=== PATIENT | female | born 1980 | race Caucasian/White ===

== ENCOUNTER 2024-12-27 04:08 | Observation (INO) ==
[2024-12-27] MEDS: SODIUM CHLORIDE 0.9% 1,000 ML IV ONE (04:21)
[2024-12-27] MEDS: ONDANSETRON INJ 2 MG/ML 2 ML VIAL IV STA (04:21)
[2024-12-27] MEDS: MoRPHine SULFATE 4 MG/ML 1 ML CARP\\VIAL IV STA (04:21)
--- NOTE | 2024-12-27 04:21 | Emergency Department Note ---
History of Present Illness General Chief complaint: Abdominal Pain Stated complaint: FRONT ABD PAIN AFTER GALLBLADDER SURG YESTERDAY Time Seen by Provider: 12/27/24 04:14 History of Present Illness Maximum Pain Intensity: 10 This 44-year-old female presents ER complaining of severe right upper quadrant pain got her gallbladder removed [address] Galeana. Patient took 2 of her Oxy's and this did not help pain got worse and patient came in. Patient denies chest pain, dyspnea, fever, chills. Home Medications Medication Instructions Recorded Confirmed Type estradiol 2 mg tablet 2 mg PO QAM 12/09/24 12/27/24 History oxycodone 5 mg tablet 5 - 10 mg (1 - 2 x 5 mg) PO 12/25/24 12/27/24 Rx .[id number] PRN pain, for initial therapy, max 6 tabs per day #15 tabs Allergies Allergy/AdvReac Type Severity Reaction Status Date / Time No Known Allergies Allergy Verified 12/25/24 13:00 Past Med/Surg History Problem List (Updated 12/27/24 @ 16:24 by Corinna Fagan PA-C) Postoperative generalized abdominal pain Intractable abdominal pain (Acute) S/P laparoscopic cholecystectomy (Acute) Encounter for pre-operative examination Medical History (Updated 12/27/24 @ 16:24 by Corinna Fagan PA-C) Cigarette smoker Small bowel obstruction hx of Surgical History (Updated 12/27/24 @ 06:01 by Xenia Woodward PA-C) Hx laparoscopic cholecystectomy (12/25/24) Laparoscopic Cholecystectomy - Jose Galeana, DO H/O tubal ligation (01/2011) 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) S/P laparoscopy with lysis of adhesions 2014, 2015, 2018 S/P complete hysterectomy (08/06/18) Family History Grandmother Diabetes Other No family history of adverse response to anesthesia Social History Smoking Status: Current every day smoker Tobacco Type: Cigarettes Age Started Using Tobacco: 19; Cigarettes Per Day: 5-6; Second Hand Exposure: No; Do You Dip or Chew Tobacco: No; Hx Alcohol Use: Yes Alcohol type: beer Alcohol Intake Frequency: Monthly or Less Hx Substance Use: No Preferred Language: Macedonian Communication Ability: Effective 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 Required: No Beliefs That Will Affect Care: None marital status: Current Living Situation: Family current occupational status: unemployed 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 How many Children do You have: 3 Feels Safe at Home: Yes Safety Concerns: Feels Safe At This Time Assistive Devices: Glasses Review of Systems A total of 10 systems reviewed and were otherwise negative Physical Exam Vital Signs Vital Signs - 24 hr 12/27/24 04:11 12/27/24 04:28 12/27/24 06:26 Temperature 36.6 C Temperature Source Temporal Artery Scan Pulse Rate 87 78 Pulse Rate [Right Finger] 99 H Pulse Rate from SpO2 Sensor Pulse Rhythm [Right Finger] Pulse Strength [Right Finger] Respiratory Rate 20 12 Respiratory Effort / Characteristics Respiratory Depth Normal Blood Pressure 152/82 H Blood Pressure [Left Arm] 112/62 Blood Pressure Mean 105 Blood Pressure Mean [Left Arm] 78 Pulse Oximetry 95 94 Oxygen Delivery Method Room Air Room Air Oxygen Flow Rate Sepsis Recent Fever Within 48 Hours No Sepsis New/Unexplained Change in Mental Status No Sepsis Action Taken by Nursing No Action Required Oxygen Flow Rate - Titration Pulse Oximetry Post Tiitration 12/27/24 06:26 12/27/24 07:20 12/27/24 08:00 Temperature Temperature Source Pulse Rate Pulse Rate [Right Finger] 63 Pulse Rate from SpO2 Sensor Pulse Rhythm [Right Finger] Regular Pulse Strength [Right Finger] Normal Respiratory Rate 20 Respiratory Effort / Characteristics Non-Labored Spontaneous Respiratory Depth Normal Blood Pressure Blood Pressure [Left Arm] 125/80 Blood Pressure Mean Blood Pressure Mean [Left Arm] 95 Pulse Oximetry 92 88 L 98 Oxygen Delivery Method Room Air Room Air Nasal Cannula Nasal Cannula Oxygen Flow Rate 0 2 Sepsis Recent Fever Within 48 Hours Sepsis New/Unexplained Change in Mental Status Sepsis Action Taken by Nursing Oxygen Flow Rate - Titration 2 Pulse Oximetry Post Tiitration 96 12/27/24 08:00 12/27/24 08:01 12/27/24 08:12 Temperature Temperature Source Pulse Rate 73 63 Pulse Rate [Right Finger] Pulse Rate from SpO2 Sensor 72 62 Pulse Rhythm [Right Finger] Pulse Strength [Right Finger] Respiratory Rate 22 22 Respiratory Effort / Characteristics Respiratory Depth Blood Pressure 125/80 Blood Pressure [Left Arm] Blood Pressure Mean 87 Blood Pressure Mean [Left Arm] Pulse Oximetry 98 98 Oxygen Delivery Method Oxygen Flow Rate Sepsis Recent Fever Within 48 Hours Sepsis New/Unexplained Change in Mental Status Sepsis Action Taken by Nursing Oxygen Flow Rate - Titration Pulse Oximetry Post Tiitration 12/27/24 08:22 12/27/24 08:22 12/27/24 08:24 Temperature Temperature Source Pulse Rate 70 Pulse Rate [Right Finger] Pulse Rate from SpO2 Sensor 68 Pulse Rhythm [Right Finger] Pulse Strength [Right Finger] Respiratory Rate 29 H Respiratory Effort / Characteristics Respiratory Depth Blood Pressure 113/79 113/79 Blood Pressure [Left Arm] Blood Pressure Mean 91 91 Blood Pressure Mean [Left Arm] Pulse Oximetry 97 Oxygen Delivery Method Oxygen Flow Rate Sepsis Recent Fever Within 48 Hours Sepsis New/Unexplained Change in Mental Status Sepsis Action Taken by Nursing Oxygen Flow Rate - Titration Pulse Oximetry Post Tiitration 12/27/24 08:46 12/27/24 09:00 12/27/24 09:00 Temperature Temperature Source Pulse Rate 51 L 64 Pulse Rate [Right Finger] Pulse Rate from SpO2 Sensor 56 L Pulse Rhythm [Right Finger] Pulse Strength [Right Finger] Respiratory Rate 25 H Respiratory Effort / Characteristics Respiratory Depth Blood Pressure 110/71 Blood Pressure [Left Arm] Blood Pressure Mean 78 Blood Pressure Mean [Left Arm] Pulse Oximetry 99 Oxygen Delivery Method Oxygen Flow Rate Sepsis Recent Fever Within 48 Hours Sepsis New/Unexplained Change in Mental Status Sepsis Action Taken by Nursing Oxygen Flow Rate - Titration Pulse Oximetry Post Tiitration 12/27/24 10:00 12/27/24 10:00 12/27/24 10:00 Temperature Temperature Source Pulse Rate 67 Pulse Rate [Right Finger] Pulse Rate from SpO2 Sensor 66 Pulse Rhythm [Right Finger] Pulse Strength [Right Finger] Respiratory Rate 10 L Respiratory Effort / Characteristics Respiratory Depth Blood Pressure 96/67 L 96/67 L Blood Pressure [Left Arm] Blood Pressure Mean 73 73 Blood Pressure Mean [Left Arm] Pulse Oximetry 98 Oxygen Delivery Method Oxygen Flow Rate Sepsis Recent Fever Within 48 Hours Sepsis New/Unexplained Change in Mental Status Sepsis Action Taken by Nursing Oxygen Flow Rate - Titration Pulse Oximetry Post Tiitration 12/27/24 11:00 12/27/24 11:00 12/27/24 12:00 Temperature Temperature Source Pulse Rate 72 82 Pulse Rate [Right Finger] Pulse Rate from SpO2 Sensor 65 82 Pulse Rhythm [Right Finger] Pulse Strength [Right Finger] Respiratory Rate 32 H 24 Respiratory Effort / Characteristics Respiratory Depth Blood Pressure 103/62 Blood Pressure [Left Arm] Blood Pressure Mean 71 Blood Pressure Mean [Left Arm] Pulse Oximetry 95 99 Oxygen Delivery Method Oxygen Flow Rate Sepsis Recent Fever Within 48 Hours Sepsis New/Unexplained Change in Mental Status Sepsis Action Taken by Nursing Oxygen Flow Rate - Titration Pulse Oximetry Post Tiitration 12/27/24 12:01 12/27/24 12:03 12/27/24 12:52 Temperature Temperature Source Pulse Rate 90 80 Pulse Rate [Right Finger] Pulse Rate from SpO2 Sensor 85 Pulse Rhythm [Right Finger] Pulse Strength [Right Finger] Respiratory Rate 15 Respiratory Effort / Characteristics Respiratory Depth Blood Pressure 128/74 Blood Pressure [Left Arm] Blood Pressure Mean 76 Blood Pressure Mean [Left Arm] Pulse Oximetry 99 Oxygen Delivery Method Oxygen Flow Rate Sepsis Recent Fever Within 48 Hours Sepsis New/Unexplained Change in Mental Status Sepsis Action Taken by Nursing Oxygen Flow Rate - Titration Pulse Oximetry Post Tiitration 12/27/24 13:00 12/27/24 13:00 12/27/24 14:00 Temperature Temperature Source Pulse Rate 83 77 Pulse Rate [Right Finger] Pulse Rate from SpO2 Sensor 78 76 Pulse Rhythm [Right Finger] Pulse Strength [Right Finger] Respiratory Rate 18 21 Respiratory Effort / Characteristics Respiratory Depth Blood Pressure 138/84 Blood Pressure [Left Arm] Blood Pressure Mean 107 Blood Pressure Mean [Left Arm] Pulse Oximetry 96 98 Oxygen Delivery Method Oxygen Flow Rate Sepsis Recent Fever Within 48 Hours Sepsis New/Unexplained Change in Mental Status Sepsis Action Taken by Nursing Oxygen Flow Rate - Titration Pulse Oximetry Post Tiitration 12/27/24 14:00 Temperature Temperature Source Pulse Rate Pulse Rate [Right Finger] Pulse Rate from SpO2 Sensor Pulse Rhythm [Right Finger] Pulse Strength [Right Finger] Respiratory Rate Respiratory Effort / Characteristics Respiratory Depth Blood Pressure 147/102 H Blood Pressure [Left Arm] Blood Pressure Mean 127 Blood Pressure Mean [Left Arm] Pulse Oximetry Oxygen Delivery Method Oxygen Flow Rate Sepsis Recent Fever Within 48 Hours Sepsis New/Unexplained Change in Mental Status Sepsis Action Taken by Nursing Oxygen Flow Rate - Titration Pulse Oximetry Post Tiitration VITALS: Vitals are noted on the nurse's note and reviewed by myself. Vital signs stable. GENERAL: Pleasant female who appears in pain, in no acute distress, nondiaphoretic, well-developed well-nourished. SKIN: Capillary reflex less than 2 seconds. HEENT: Normocephalic. PERRLA. EOMI. Nares patent. Mucous membranes moist. Neck is supple without nuchal rigidity. HEART: Regular rate and rhythm LUNGS: Clear to auscultation bilaterally without wheezes, rales or rhonchi. No retractions or accessory muscle use. ABDOMEN: Positive bowel sounds x 4. Normal tympanic percussion. Soft, incision intact without signs of infection, tender to palpation upper abdomen, without masses or organomegaly. No guarding or rebound tenderness. no CVA tenderness MUSCULOSKELETAL: No gross musculoskeletal defects. NEURO: Patient was alert and oriented to person place and time. No focal neurological deficits. Course Administered Medications Hydromorphone HCl (Hydromorphone Inj 0.5 Mg/0.5 Ml Syr) 0.5 mg IV Q15M PRN PRN Reason: Pain Stop: 01/10/25 04:40 Last Admin: 12/27/24 08:06 Dose: 0.5 mg Documented By: Admin: 12/27/24 06:13 Dose: 0.5 mg Documented By: fernanda Admin: 12/27/24 05:16 Dose: 0.5 mg Documented By: fernanda Admin: 12/27/24 04:50 Dose: 0.5 mg Documented By: fernanda Sodium Chloride (Nss) 1,000 mls @ 80 mls/hr IV .[id number] ELIZABETH Stop: 12/30/24 05:59 Last Admin: 12/27/24 20:33 Dose: 80 mls/hr Documented By: pierce Infusion: 12/27/24 18:48 Dose: Infused Documented By: pierce Admin: 12/27/24 06:18 Dose: 80 mls/hr Documented By: fernanda Ibuprofen (Ibuprofen 600 Mg Tab) 600 mg PO Q6H PRN PRN Reason: Pain Stop: 01/26/25 15:54 Last Admin: 12/27/24 16:46 Dose: 600 mg Documented By: juanito Ketorolac Tromethamine (Ketorolac 30 Mg/Ml Vial) 30 mg IV Q6H PRN PRN Reason: Pain Stop: 01/01/25 15:54 Last Admin: 12/27/24 20:34 Dose: 30 mg Documented By: psc Discontinued Medications Sodium Chloride (Nss) 1,000 mls @ 999 mls/hr IV .Q1H1M ONE Stop: 12/27/24 05:14 Last Infusion: 12/27/24 06:10 Dose: Infused Documented By: fernanda Admin: 12/27/24 04:21 Dose: 999 mls/hr Documented By: fernanda Pantoprazole Sodium (Protonix) 40 mg in 10 mls @ 5 mls/min IV NOW ONE Stop: 12/27/24 04:42 Last Admin: 12/27/24 04:50 Dose: 5 mls/min Documented By: fernanda Ioversol (Optiray 320 100ml) 93 ml IV ONCE ONE Stop: 12/27/24 04:38 Last Admin: 12/27/24 04:37 Dose: 93 ml Documented By: SHAHID Ketorolac Tromethamine (Ketorolac 30 Mg/Ml Vial) 30 mg IV NOW ONE Stop: 12/27/24 13:50 Last Admin: 12/27/24 14:05 Dose: 30 mg Documented By: JOSE ANTONIO Morphine Sulfate (Morphine Sulfate 4 Mg/Ml 1 Ml Carp\Vial) 4 mg IV NOW STA Stop: 12/27/24 04:15 Last Admin: 12/27/24 04:21 Dose: 4 mg Documented By: fernanda Ondansetron HCl (Ondansetron Inj 2 Mg/Ml 2 Ml Vial) 4 mg IV NOW STA Stop: 12/27/24 04:15 Last Admin: 12/27/24 04:21 Dose: 4 mg Documented By: fernanda Medical Decision Making Medical Records Attestation: I reviewed the patient's medical records. Home Medications Current Medication List: was personally reviewed by me Laboratory Data Attestation: I reviewed the patient's lab results. 12/27/24 04:13 12/27/24 04:13 Lab Results 12/27/24 12/27/24 12/27/24 Range/Units 04:13 04:22 04:27 WBC 11.21 H (4.8-10.8) K/ul RBC 4.29 (4.20-5.40) M/uL Hgb 13.1 (12.0-16.0) g/dl POC Hgb 12.9 (12.0-16.0) g/dl Hct 38.5 (37.0-47.0) % POC Hct 38 (37-47) % MCV 89.7 (80.0-100.0) fL MCH 30.5 (25.0-34.0) pg MCHC 34.0 (32.0-36.0) g/dL RDW Std Deviation 42.3 (36.4-46.3) fL RDW Coeff of Fernando 12.8 (11.5-14.5) % Plt Count 269 (130-400) K/uL MPV 9.7 (9.4-12.4) fL Immature Gran % (Auto) 0.4 % Neut % (Auto) 63.8 % Lymph % (Auto) 29.3 % Motley % (Auto) 6.2 % Eos % (Auto) 0.2 % Baso % (Auto) 0.1 % Neut # (Auto) 7.17 H (1.40-6.50) K/uL Lymph # (Auto) 3.28 (1.20-3.40) K/uL Motley # (Auto) 0.69 H (0.11-0.59) K/uL Eos # (Auto) 0.02 (0.00-0.50) K/uL Baso # (Auto) 0.01 (0.00-0.20) K/uL Immature Gran # (Auto) 0.04 (0.01-0.20) K/uL POC Sodium 140 (135-144) mmol/L Sodium 139 (136-145) mmol/L POC Potassium 4.1 (3.3-5.0) mmol/L Potassium 4.1 (3.5-5.1) mmol/L POC Chloride 106 (101-112) mmol/L Chloride 106 (98-107) mmol/L Carbon Dioxide 26 (21-32) mmol/L POC Total CO2 24 (24-31) mmol/L Anion Gap 7 (3-11) POC Anion Gap 16.0 (16-25) mmol/L POC BUN 11 (7-18) mg/dl BUN 12 (6-23) mg/dl Creatinine 0.87 (0.6-1.2) mg/dl POC Creatinine 0.9 (0.6-1.3) mg/dl Est Cr Clr Drug Dosing 68.2 ml/min eGFR 83.68 BUN/Creatinine Ratio 13.8 (10-20) Glucose 117 H (70-99(Fasting)) mg/dl POC Glucose (other) 112 H (70-99) mg/dl Calcium 9.3 (8.6-10.3) mg/dl POC Ioniz Calcium Sally 1.13 (1.12-1.32) mmol/l Total Bilirubin 0.3 (0.2-1.0) mg/dl AST 46 H (13-39) U/L ALT 50 (7-52) U/L Alkaline Phosphatase 47 (34-104) U/L Total Protein 7.0 (6.0-8.3) gm/dl Albumin 4.0 (3.4-5.0) gm/dl Globulin 3.0 (2.5-4.0) gm/dl Albumin/Globulin Ratio 1.3 (0.9-2) Lipase 14 (11-82) U/L HCG, Qual Negative (Negative) Urine Color Yellow Urine Appearance Clear (Clear) Urine pH 6.5 (4.5-7.5) Ur Specific [place] 1.015 (1.000-1.030) Urine Protein Negative (Negative) Urine Glucose (UA) Negative (Negative) Urine Ketones Negative (Negative) Urine Blood Negative (Negative) Urine Nitrite Negative (Negative) Urine Bilirubin Negative (Negative) Urine Urobilinogen Negative (Negative) Ur Leukocyte Esterase Negative (Negative) Urine Comment Imaging Data Attestation: I personally reviewed and interpreted this imaging study as follows: Radiologist's Impression: Abdomen/Pelvis CT 12/27/24 04:13 EXAM: CT abd pelvis IV con only CLINICAL HISTORY: Gallbladder was removed 2 days ago, with severe pain. TECHNIQUE: CT of the abdomen and pelvis was performed with IV contrast, using the following protocol: axial images were obtained and reconstructed into coronal and sagittal images. One of the following dose-reduction techniques was used for this exam: automated exposure control, adjustment of mA and/or kV according to patient size, and iterative reconstruction. COMPARISON: Prior CT 11/26/2024 and US 11/26/2024 FINDINGS: Abdomen: Status post cholecystectomy. The operative bed demonstrates minimal free fluid and minimal perihepatic free air density, consistent with postoperative changes. The common bile duct measures approximately 5 mm in diameter. Liver: Normal in size, contour, and attenuation. No focal hepatic lesions are identified. The hepatic vasculature and intrahepatic bile ducts are unremarkable. Pancreas: The head, body, and tail are normal in size and density. No pancreatic mass, calcification, or ductal dilatation is present. Spleen: Normal in size and attenuation. No focal splenic lesions. Appendix: Not well visualized; no inflammatory changes in the right iliac fossa. Kidneys and Adrenal Glands: Both kidneys are normal in size, shape, and cortical thickness. No calculi or hydronephrosis are present. The adrenal glands are unremarkable. Pelvis: The urinary bladder is normal in contour and wall thickness; no intraluminal lesions are seen. The uterus is surgically absent. Ovaries are not well visualized; no gross adnexal abnormalities are seen. The vagina and cervix appear normal. Peritoneal and Retroperitoneal Structures: Minimal pelvic free fluid is noted. No lymphadenopathy is present. Bowel: Visualized bowel loops are normal in caliber and wall thickness. No evidence of obstruction or inflammatory changes. Bones and Soft Tissues: The pelvic bones and soft tissues are unremarkable. No fractures or masses are identified. IMPRESSION: 1. Post-cholecystectomy changes with minimal operative bed free fluid and perihepatic free air, consistent with postoperative sequela. New finding. 2. Minimal pelvic free fluid. New finding. 3. No evidence of intra-abdominal collection, abscess, or other significant interval change. Electronically signed by Ariel Nash 12-27-2024 05:50 AM [facility] Narrative Prior records/ancillary studies reviewed. Triage Nursing notes reviewed. Additional history obtained from family. The patient's history was concerning for abdominal pain. Differential diagnosis: Etiologies such as postsurgical complication, postsurgical pain, appendicitis, diverticulitis, PUD, biliary pathology, UTI, pancreatitis, obstruction, mesenteric ischemia, aortic pathology, infections, inflammatory bowel disease, renal colic, as well as others were entertained. Physical examination findings: As above. ER treatment provided: An order was placed for continuous cardiac monitoring. The monitor shows a rate of 60-100 with a sinus rhythm per my Independent interpretation. IV fluids Zofran and morphine ordered On reassessment the patient felt better. Diagnostics interpreted by me: The labs Independently Interpreted by myself revealed mild leukocytosis, stable H&H, glucose 117. Imaging studies: Imaging was reviewed and read by radiology Consultation: A consultation was placed with the surgeon, Dr. Botello, the case was discussed and diagnostics were reviewed. The patient was admitted to her service. Exam and history seem consistent with intractable abdominal pain who had her gallbladder removed [address] with no findings of surgical complication. Stable labs. Patient was still in a moderate amount of pain despite multiple rounds of pain meds. Surgery was consulted and will evaluate the patient for admission. She was placed on maintenance fluids. She was ordered as needed pain meds as needed. Patient and family agreeable treatment plan. By the evaluation outlined above emergent etiologies such as appendicitis, diverticulitis, PUD, biliary pathology, UTI, pancreatitis, obstruction, mesenteric ischemia, aortic pathology, infections, inflammatory bowel disease, renal colic, as well as others were deemed relatively unlikely. The pt informed about the findings as listed above. All questions were answered and pleased with the treatment. The chart was completed utilizing [employer] Speech voice recognition software. Grammatical errors, random word insertions, pronoun errors, and incomplete sentences are an occassional consequence of this system due to software limitations, ambient noise, and hardware issues. Any formal questions or concerns about the content, text, or information contained within the body of this dictation should be directly addressed to the physician evaluation assistant for clarification. Impression & Plan Intractable abdominal pain, S/P laparoscopic cholecystectomy Discharge Plan Visit Data Chief Complaint: Abdominal Pain Stated Complaint: FRONT ABD PAIN AFTER GALLBLADDER SURG YESTERDAY ED Provider: Esperanza Marin ED Midlevel Provider: Xenia Woodward Discharge Problem: Intractable abdominal pain, S/P laparoscopic cholecystectomy Patient Disposition: Admitted As Inpatient Condition: Good Discharge Instructions Interventions: ED Discharge Assessment Last Done: 12/27/24 16:40
[2024-12-27 04:33] LABS: Appearance Urine Clear (Clear); Glucose Urine UA Negative (Negative)
[2024-12-27 04:36] LABS: Hematocrit (blood only) 38.5 % (37.0-47.0); Hemoglobin 13.1 g/dl (12.0-16.0); Immature Granulocytes # (auto) 0.04 K/uL (0.01-0.20); Immature Granulocytes % (auto) 0.4 %; Mean Corpuscular Hemoglobin 30.5 pg (25.0-34.0); Mean Corpuscular Volume 89.7 fL (80.0-100.0); Platelet Count 269 K/uL (130-400); RDW Standard Deviation 42.3 fL (36.4-46.3); Red Blood Count 4.29 M/uL (4.20-5.40); White Blood Count 11.21 K/ul (4.8-10.8)
[2024-12-27] MEDS: OPTIRAY 320 100ml IV ONE (04:37)
[2024-12-27] MEDS: HYDROmorphone INJ 0.5 MG/0.5 ML SYR IV PRN (04:50)
[2024-12-27] MEDS: PANTOprazole 40 MG/10 ML SYR IV ONE (04:50)
[2024-12-27 04:55] LABS: Alanine Aminotransferase 50.0 U/L (7-52); Albumin Globulin Ratio 1.3 (0.9-2); Albumin Level 4.0 gm/dl (3.4-5.0); Alkaline Phosphatase 47.0 U/L (34-104); Anion Gap 7.0 (3-11); Bilirubin,Total 0.3 mg/dl (0.2-1.0); Blood Urea Nitrogen 12.0 mg/dl (6-23); Calcium 9.3 mg/dl (8.6-10.3); Carbon Dioxide 26.0 mmol/L (21-32); Chloride 106.0 mmol/L (98-107); Creatinine Clr Calc Pharmacy 68.2 ml/min; Globulin 3.0 gm/dl (2.5-4.0); Glucose 117.0 mg/dl (70-99(Fasting)); Lipase 14.0 U/L (11-82); Potassium 4.1 mmol/L (3.5-5.1); Sodium 139.0 mmol/L (136-145); Total Protein 7.0 gm/dl (6.0-8.3)
[2024-12-27 05:20] LABS: Pregnancy Test, Serum Negative (Negative)
--- NOTE | 2024-12-27 05:50 | CT Scan Report ---
EXAM: CT abd pelvis IV con only CLINICAL HISTORY: Gallbladder was removed 2 days ago, with severe pain. TECHNIQUE: CT of the abdomen and pelvis was performed with IV contrast, using the following protocol: axial images were obtained and reconstructed into coronal and sagittal images. One of the following dose-reduction techniques was used for this exam: automated exposure control, adjustment of mA and/or kV according to patient size, and iterative reconstruction. COMPARISON: Prior CT 11/26/2024 and US 11/26/2024 FINDINGS: Abdomen: Status post cholecystectomy. The operative bed demonstrates minimal free fluid and minimal perihepatic free air density, consistent with postoperative changes. The common bile duct measures approximately 5 mm in diameter. Liver: Normal in size, contour, and attenuation. No focal hepatic lesions are identified. The hepatic vasculature and intrahepatic bile ducts are unremarkable. Pancreas: The head, body, and tail are normal in size and density. No pancreatic mass, calcification, or ductal dilatation is present. Spleen: Normal in size and attenuation. No focal splenic lesions. Appendix: Not well visualized; no inflammatory changes in the right iliac fossa. Kidneys and Adrenal Glands: Both kidneys are normal in size, shape, and cortical thickness. No calculi or hydronephrosis are present. The adrenal glands are unremarkable. Pelvis: The urinary bladder is normal in contour and wall thickness; no intraluminal lesions are seen. The uterus is surgically absent. Ovaries are not well visualized; no gross adnexal abnormalities are seen. The vagina and cervix appear normal. Peritoneal and Retroperitoneal Structures: Minimal pelvic free fluid is noted. No lymphadenopathy is present. Bowel: Visualized bowel loops are normal in caliber and wall thickness. No evidence of obstruction or inflammatory changes. Bones and Soft Tissues: The pelvic bones and soft tissues are unremarkable. No fractures or masses are identified. IMPRESSION: 1. Post-cholecystectomy changes with minimal operative bed free fluid and perihepatic free air, consistent with postoperative sequela. New finding. 2. Minimal pelvic free fluid. New finding. 3. No evidence of intra-abdominal collection, abscess, or other significant interval change. Electronically signed by Ariel Nash 12-27-2024 05:50 AM
[2024-12-27] MEDS: SODIUM CHLORIDE 0.9% 1,000 ML IV SCH (06:18)
--- NOTE | 2024-12-27 10:15 | Surgery Consultation ---
<Statement entered by Yana Botello MD - 12/27/24 13:58> I saw and examined the patient and I agree with the assessment and plan of care Date of Consultation December 27, 2024 Assessment & Plan (1) S/P laparoscopic cholecystectomy: (2) Intractable abdominal pain: Tricia is 2 days s/p Lap Cholecystectomy with Dr. Galeana. She presented to ED early this morning due to increasing abdominal pain that was not improved with prescribed post-op pain medication. Pain seems to be improved since arriving to ED for evaluation. Dr. Botello did discuss with patient that pain is most likely due to resolving gas from laparoscopic procedure. Blood work and recent CT scan of abdomen personally reviewed by myself and Dr. Botello. Expected post-operative changes. No evidence of abscess formation. Will advance patient's diet and see how she tolerates, will check back after lunch to see how she is feeling. If she is doing ok, tolerating diet, and pain is improved she is able to go home with follow-up with Dr. Galeana in 1-2 weeks. Patient seen and examined with Dr. Botello. History of Present Illness Reason for Consultation: Post-surgical pain. History of Present Illness Tricia is 2 days s/p Laparoscopic Cholecystectomy with Dr. Galeana. She presented to the ED with worsening abdominal pain. She states that she became concerned when two post-op pain pills did not help with her pain. She states that yesterday she was really trying to increase her water intake and walk around her house, but as the day went on, her pain continued to become worse. ED course- VSS WBC 11.21; Hgb 13.1; Hct 38.5; Tot Bili 0.3; ALT 50; AST 46; Lipase 14 Urinalysis within normal limits CT abd/pelvis IMPRESSION: 1. Post-cholecystectomy changes with minimal operative bed free fluid and perihepatic free air, consistent with postoperative sequela. New finding. 2. Minimal pelvic free fluid. New finding. 3. No evidence of intra-abdominal collection, abscess, or other significant interval change. Currently, Tricia reports that her abdominal pain is at a tolerable level. Allergies Allergy/AdvReac Type Severity Reaction Status Date / Time No Known Allergies Allergy Verified 12/25/24 13:00 Home Medications Medication Instructions Recorded Confirmed Type estradiol 2 mg tablet 2 mg PO QAM 12/09/24 12/27/24 History oxycodone 5 mg tablet 5 - 10 mg (1 - 2 x 5 mg) PO 12/25/24 12/27/24 Rx .[id number] PRN pain, for initial therapy, max 6 tabs per day #15 tabs Patient History Medical History (Updated 12/27/24 @ 06:01 by Xenia Woodward PA-C) Cigarette smoker Small bowel obstruction hx of Surgical History (Updated 12/27/24 @ 06:01 by Xenia Woodward PA-C) Hx laparoscopic cholecystectomy (12/25/24) Laparoscopic Cholecystectomy - Jose Galeana DO H/O tubal ligation (01/2011) 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) S/P laparoscopy with lysis of adhesions 2014, 2015, 2018 S/P complete hysterectomy (08/06/18) Family History Grandmother Diabetes Other No family history of adverse response to anesthesia Social History Smoking Status: Current every day smoker Tobacco Type: Cigarettes Age Started Using Tobacco: 19; Cigarettes Per Day: 5-6; Second Hand Exposure: No; Do You Dip or Chew Tobacco: No; Hx Alcohol Use: No Hx Substance Use: No Preferred Language: Setswana Communication Ability: Effective Cloth Grader Required: No Beliefs That Will Affect Care: None marital status: Current Living Situation: Family current occupational status: unemployed 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 ); no nausea and no vomiting Physical Exam Constitutional: WD/WN, vitals as above Respiratory: normal respiratory effort; no respiratory distress and no labored breathing Gastrointestinal (Abdomen): Abdominal incisions are CDI with Dermabond in place- no signs of infection. She is tender with palpation. Results & Data Vital Signs (Past 12 Hours) Vital Signs Temp Pulse Pulse Resp BP BP Pulse Ox 12/27/24 08:46 51 L 12/27/24 08:22 113/79 12/27/24 08:12 63 22 98 12/27/24 08:01 125/80 12/27/24 08:00 73 22 98 12/27/24 08:00 63 20 125/80 98 12/27/24 07:20 88 L 12/27/24 06:26 92 12/27/24 06:26 99 H 12 112/62 94 12/27/24 04:28 78 12/27/24 04:11 36.6 C 87 20 152/82 H 95 O2 Del Method O2 Flow Rate 12/27/24 08:46 12/27/24 08:22 12/27/24 08:12 12/27/24 08:01 12/27/24 08:00 12/27/24 08:00 Nasal Cannula 2 12/27/24 07:20 Room Air, Nasal Cannula 0 12/27/24 06:26 Room Air 12/27/24 06:26 Room Air 12/27/24 04:28 12/27/24 04:11 Room Air PG Care Time/CCT Total # of Minutes Spent Total Time Spent with Patient: Total time spent is greater than 50% in coordination of care (as documented) at patient's floor/unit and/or counseling patient: Coding Level of Care Code 32409 OFFICE CONSULT LVL 30M Diagnoses S/P laparoscopic cholecystectomy Z90.49 Intractable abdominal pain R10.9
[2024-12-27] MEDS: KETOROLAC 30 MG/ML VIAL IV ONE (14:05)
[2024-12-27] MEDS ORDERED: PROMETHAZINE 12.5 MG/50.5 ML BAG IV PRN (15:55)
[2024-12-27] MEDS ORDERED: ONDANSETRON INJ 2 MG/ML 2 ML VIAL IV PRN (15:55)
--- NOTE | 2024-12-27 16:19 | History & Physical Report ---
<Statement entered by Yana Botello MD - 12/27/24 16:35> I saw the patient independently, and I agree w the assessment and plan of care. Date of Service December 27, 2024 Assessment & Plan (1) Postoperative generalized abdominal pain: (2) S/P laparoscopic cholecystectomy: Plan: Patient observed in the ED since 9 AM, reports minor improvement in abdominal spasms, but cannot tolerate any PO intake at this time. She is concerned about going home and would like to be admitted. CT scan was reviewed by myself and Dr. Botello- expected post-op changes. Patient admitted for overnight observation. IVF ordered. Will keep on low fat diet, but was encouraged to go slow. She does feel like compression makes her abdomen feel better, so I did order an abdominal binder for her. Toradol given in ED seems to work the best for her, this has been ordered. She would like to try to control her pain with Tylenol and Ibuprofen if possible, both have been ordered. She was highly encouraged to walk as much as possible to help with gas following laparoscopic surgery. I did order CBC and CMP for the AM. Dr. Botello aware of admission and will follow-up with patient in the AM. History of Present Illness Chief Complaint: Worsening post-op abdominal pain. Primary Care Provider: DEONDRE Chacko Tricia is a 44-year-old female who presented to the ED early this morning due to worsening post-operative abdominal pain. She is 2 days s/p Laparoscopic Cholecystectomy with Dr. Galeana. She reports that she was doing ok for the first day, but that she never really felt great following surgery. She reports that last night her pain became so intense that two Percocet did not even help with the pain. She became concerned. She was evaluated in the ED by myself and Dr. Botello. CT scan was ordered by ED provider that showed: IMPRESSION: 1. Post-cholecystectomy changes with minimal operative bed free fluid and perihepatic free air, consistent with postoperative sequela. New finding. 2. Minimal pelvic free fluid. New finding. 3. No evidence of intra-abdominal collection, abscess, or other significant interval change. WBC slightly elevated at 11.21. AST slightly elevated at 50, remainder of LFTs within normal limits. She is afebrile. Currently, patient reports that she continues to have abdominal spasms and is not able to tolerate anything to eat or drink. She is very concerned about going home and would prefer to be admitted for observation. Allergies Allergy/AdvReac Type Severity Reaction Status Date / Time No Known Allergies Allergy Verified 12/25/24 13:00 Home Medications Medication Instructions Recorded Confirmed Type estradiol 2 mg tablet 2 mg PO QAM 12/09/24 12/27/24 History oxycodone 5 mg tablet 5 - 10 mg (1 - 2 x 5 mg) PO 12/25/24 12/27/24 Rx .[id number] PRN pain, for initial therapy, max 6 tabs per day #15 tabs Past Med/Surg History Problem List (Updated 12/27/24 @ 16:24 by Corinna Fagan PA-C) Postoperative generalized abdominal pain Intractable abdominal pain (Acute) S/P laparoscopic cholecystectomy (Acute) Encounter for pre-operative examination Medical History (Updated 12/27/24 @ 16:24 by Corinna Fagan PA-C) Cigarette smoker Small bowel obstruction hx of Surgical History (Updated 12/27/24 @ 06:01 by Xenia Woodward PA-C) Hx laparoscopic cholecystectomy (12/25/24) Laparoscopic Cholecystectomy - Jose Galeana DO H/O tubal ligation (01/2011) 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) S/P laparoscopy with lysis of adhesions 2014, 2015, 2018 S/P complete hysterectomy (08/06/18) Family History Grandmother Diabetes Other No family history of adverse response to anesthesia Social History Smoking Status: Current every day smoker Tobacco Type: Cigarettes Age Started Using Tobacco: 19; Cigarettes Per Day: 5-6; Second Hand Exposure: No; Do You Dip or Chew Tobacco: No; Hx Alcohol Use: No Hx Substance Use: No Preferred Language: [place] Communication Ability: Effective Counter Installer Required: No Beliefs That Will Affect Care: None marital status: Current Living Situation: Family current occupational status: unemployed 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 ) Physical Exam Constitutional: WD/WN, vitals as above Respiratory: normal respiratory effort; no respiratory distress and no labored breathing Gastrointestinal (Abdomen): Abdomen is soft, generalized tenderness as expected in immediate post-op period. Abdominal incisions are all clean, dry, intact and well-approximated with no signs of infection. Results & Data Results & Data Vital Signs (Past 12 Hours) Vital Signs Pulse Pulse Resp BP BP Pulse Ox O2 Del Method 12/27/24 16:00 67 16 103/67 97 Room Air 12/27/24 14:00 147/102 H 12/27/24 14:00 77 21 98 12/27/24 13:00 83 18 96 12/27/24 13:00 138/84 12/27/24 12:52 80 12/27/24 12:03 90 15 99 12/27/24 12:01 128/74 12/27/24 12:00 82 24 99 12/27/24 11:00 103/62 12/27/24 11:00 72 32 H 95 12/27/24 10:00 96/67 L 12/27/24 10:00 96/67 L 12/27/24 10:00 67 10 L 98 12/27/24 09:00 110/71 12/27/24 09:00 64 25 H 99 12/27/24 08:46 51 L 12/27/24 08:24 70 29 H 97 12/27/24 08:22 113/79 12/27/24 08:22 113/79 12/27/24 08:12 63 22 98 12/27/24 08:01 125/80 12/27/24 08:00 73 22 98 12/27/24 08:00 63 20 125/80 98 Nasal Cannula 12/27/24 07:20 88 L Room Air, Nasal Cannula 12/27/24 06:26 92 Room Air 12/27/24 06:26 99 H 12 112/62 94 Room Air 12/27/24 04:28 78 O2 Flow Rate 12/27/24 16:00 12/27/24 14:00 12/27/24 14:00 12/27/24 13:00 12/27/24 13:00 12/27/24 12:52 12/27/24 12:03 12/27/24 12:01 12/27/24 12:00 12/27/24 11:00 12/27/24 11:00 12/27/24 10:00 12/27/24 10:00 12/27/24 10:00 12/27/24 09:00 12/27/24 09:00 12/27/24 08:46 12/27/24 08:24 12/27/24 08:22 12/27/24 08:22 12/27/24 08:12 12/27/24 08:01 12/27/24 08:00 12/27/24 08:00 2 12/27/24 07:20 0 12/27/24 06:26 12/27/24 06:26 12/27/24 04:28 Code Status & VTE Plan VTE Prophylaxis Plan VTE Prophylaxis will be ordered: Yes PG Care Time/CCT Total # of Minutes Spent Total Time Spent with Patient: Total time spent is greater than 50% in coordination of care (as documented) at patient's floor/unit and/or counseling patient: Coding Level of Care Code 97290 INT INP/OBS CARE 3/75MIN Diagnoses Postoperative generalized abdominal pain G89.18; R10.84 S/P laparoscopic cholecystectomy Z90.49
[2024-12-27] MEDS: IBUPROFEN 600 MG TAB PO PRN (16:46)
[2024-12-27] MEDS: KETOROLAC 30 MG/ML VIAL IV PRN (20:34)
[2024-12-28] MEDS: ACETAMINOPHEN 325 MG TAB PO PRN (01:10)
[2024-12-28 03:53] VITALS: RESP 16
[2024-12-28 07:20] VITALS: BP 107/69; PULSE 74; TEMP 98.6; O2SAT 93
[2024-12-28 07:33] LABS: Hematocrit (blood only) 33.1 % (37.0-47.0); Hemoglobin 11.4 g/dl (12.0-16.0); Immature Granulocytes # (auto) 0.02 K/uL (0.01-0.20); Immature Granulocytes % (auto) 0.3 %; Mean Corpuscular Hemoglobin 30.6 pg (25.0-34.0); Mean Corpuscular Volume 89.0 fL (80.0-100.0); Platelet Count 222 K/uL (130-400); RDW Standard Deviation 41.1 fL (36.4-46.3); Red Blood Count 3.72 M/uL (4.20-5.40); White Blood Count 6.21 K/ul (4.8-10.8)
[2024-12-28 07:52] LABS: Alanine Aminotransferase 43.0 U/L (7-52); Albumin Globulin Ratio 1.4 (0.9-2); Albumin Level 3.3 gm/dl (3.4-5.0); Alkaline Phosphatase 57.0 U/L (34-104); Anion Gap 5.0 (3-11); Bilirubin,Total 0.6 mg/dl (0.2-1.0); Blood Urea Nitrogen 6.0 mg/dl (6-23); Calcium 8.4 mg/dl (8.6-10.3); Carbon Dioxide 29.0 mmol/L (21-32); Chloride 108.0 mmol/L (98-107); Creatinine Clr Calc Pharmacy 84.7 ml/min; Globulin 2.4 gm/dl (2.5-4.0); Glucose 98.0 mg/dl (70-99(Fasting)); Potassium 3.8 mmol/L (3.5-5.1); Sodium 142.0 mmol/L (136-145); Total Protein 5.7 gm/dl (6.0-8.3)
--- NOTE | 2024-12-28 10:42 | Surgery Progress Note ---
<Statement entered by Yana Botello MD - 12/28/24 15:48> I independently saw the patient, and I agree with the assessment and plan of care. Date of Service December 28, 2024 Assessment & Plan (1) S/P laparoscopic cholecystectomy: Plan: Pt here w/ abdominal pain s/p lap dennys with dr. lam on 12/25 today wbc 6.2, Hbg 11.4, LFTs within normal limits. vitals are stable CT this admission without any acute findings, expected post surgical appearance she clinically feels much better will continue to advance diet as tolerates may be discharged to home today. d/c instructions and follow up as previously scheduled Admission and Anticipated Discharge Date Admission Date: December 27, 2024 Subjective Patient feeling much better today. Tolerating diet. Pain improved. Physical Exam Physical Exam: awake/alert, no distress Gastrointestinal (Abdomen): wearing abdominal binder. improving discomfort to palpation. incisions with dermabond Results & Data Vital Signs (Past 12 Hours) Vital Signs Temp Pulse Resp BP Pulse Ox O2 Del Method 12/28/24 07:19 98.6 F 74 16 107/69 93 Room Air 12/28/24 03:43 98.2 F 65 16 108/71 92 Room Air 12/27/24 23:28 97.9 F 64 18 120/77 90 Room Air PG Care Time/CCT Total # of Minutes Spent Total Time Spent with Patient: Total time spent is greater than 50% in coordination of care (as documented) at patient's floor/unit and/or counseling patient: Coding Level of Care Code 19010 Post Operative Follow-Up Diagnoses S/P laparoscopic cholecystectomy Z90.49
== END 2024-12-28 11:04 | disposition home or self-care (01) ==
LOC: ED 04:08 → 3W 04:08